=== PATIENT | male | born 1955 | race Caucasian/White ===

== ENCOUNTER 2017-01-15 05:41 | Emergency (ER) | payer BC ==
[2017-01-15] MEDS ORDERED: Fentanyl 100 MCG/2 ML VIAL ONE (05:50)
[2017-01-15] MEDS ORDERED: Ondansetron HCl/PF 4 MG/2 ML Vial ONE ×2 (05:51→07:14)
[2017-01-15] MEDS ORDERED: Morphine 10 MG/ML VIAL ONE ×2 (06:06→07:11)
[2017-01-15] MEDS ORDERED: Lidocaine 1% PF 5 ML VIAL ONE (06:24)
[2017-01-15] MEDS ORDERED: Magnesium Sulfate 2 GM/100 ML BAG ONE (07:03)
[2017-01-15] MEDS ORDERED: Lidocaine 1% (PF) 30 ML VIAL ONE (07:45)
[2017-01-15] MEDS ORDERED: CEFAZOLIN/Water 2 GM/20 ML SYRINGE ONE (08:11)
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
[2017-01-15 12:11] LABS: ALT (SGPT) 35 U/L (8-55); AST (SGOT) 31 U/L (5-34); Alkaline Phosphatase 72 U/L (40-150); Anion Gap 16 mmol/L (10-20); BUN (Urea Nitrogen) 14 mg/dL (8.4-25.7); Calc. Creatinine Clearance 0 mL/min (70-130); Calcium 8.6 mg/dL (7.8-10.44); Carbon Dioxide 22 mmol/L (23-31); Chloride 109 mmol/L (98-107); Estimated GFR-MDRD 79; Globulin 3.1 g/dL (2.4-3.5); Protein, Total 7.2 g/dL (5.8-8.1)
== END 2017-01-15 10:10 | disposition home or self-care (01) ==
LOC: ERS 05:41
DX: S62.630A Displaced fracture of distal phalanx of right index finger, initial encounter for closed fracture (principal); S62.632A Displaced fracture of distal phalanx of right middle finger, initial encounter for closed fracture; S62.634A Displaced fracture of distal phalanx of right ring finger, initial encounter for closed fracture; S61.011A Laceration without foreign body of right thumb without damage to nail, initial encounter; I10 Essential (primary) hypertension; Z79.899 Other long term (current) drug therapy; W22.8XXA Striking against or struck by other objects, initial encounter
CPT/HCPCS: 12002; 80053; 96374; 96375; 96376; J1170; J2001; J2270; J2405; J3010; J3475

== ENCOUNTER 2017-04-07 21:54 | Emergency (ER) | payer BC ==
--- NOTE | 2017-04-07 22:43 | RAD ---
TWO VIEWS OF THE CHEST 04/07/17 COMPARISON: 11/26/02 HISTORY: Fever. FINDINGS: Two views of the chest show normal sized cardiomediastinal silhouette. There is no evidence of consol idation, mass, or pleural effusion. The bones are unremarkable. IMPRESSION: No evidence of acute cardiopulmonary disease. POS: [facility]
[2017-04-07 23:20] LABS: Anion Gap 16 mmol/L (10-20); BUN (Urea Nitrogen) 18 mg/dL (8.4-25.7); Calc. Creatinine Clearance 0 mL/min (70-130); Carbon Dioxide 25 mmol/L (23-31); Chloride 103 mmol/L (98-107); Estimated GFR-MDRD 74; Potassium 3.7 mmol/L (3.5-5.1); Sodium 140 mmol/L (136-145)
[2017-04-07 23:21] LABS: ALT (SGPT) 30 U/L (8-55); AST (SGOT) 22 U/L (5-34); Alkaline Phosphatase 77 U/L (40-150); Bilirubin, Total 1.5 mg/dL (0.2-1.2); CK (CPK) 276 U/L (30-200); Calcium 8.9 mg/dL (7.8-10.44); Globulin 2.6 g/dL (2.4-3.5); Glucose 103 mg/dL (80-115); Protein, Total 6.6 g/dL (5.8-8.1)
[2017-04-07 23:28] LABS: CKMB 2.4 ng/mL (0-6.6); Troponin I Less than 0.010 ng/mL (< 0.028)
[2017-04-07 23:48] LABS: #Basophils 0.1 thou/uL (0.0-0.2); #Eosinphils 0.1 thou/uL (0.0-0.7); #Lymphocytes 0.4 thou/uL (1.20-3.40); #Monocytes 0.4 thou/uL (0.11-0.59); #Neutrophils 4.4 thou/uL (1.40-6.50); %Basophils 1.1 % (0.0-1.0); %Eosinophils 1.8 % (0.0-10.0); %Lymphocytes 7.6 % (21.0-51.0); %Monocytes 6.8 % (0.0-10.0); %Neutrophils 82.8 % (42.0-75.0); Hemoglobin 14.5 g/dL (14.0-18.0); MDiff Complete? YES; Mean Corpuscular Hemoglobin 29.6 pg (27.0-31.0); Mean Corpuscular Volume 87.2 fl (80.0-94.0); Mean Platelet Volume 13.5 fL (7.4-10.4); PLT Morphology Comment Appears Decreased; Platelet Clumps SLIGHT; Platelet Count 70 thou/uL (130-400); RBC Distribution Width 11.5 % (11.5-14.5); White Blood Cell (WBC) Count 5.3 thou/uL (4.8-10.8)
[2017-04-07 23:52] LABS: Bilirubin Small (Negative); Blood, Urine Trace (Negative); Clarity Slightly Cloudy (Clear); Glucose, Urine (Dipstick) Negative (Negative); Leukocyte Negative (Negative); Nitrite Negative (Negative); Protein, Urine (Dipstick) 30 mg/dL (Neg-Trace); Specific Gravity, Urine 1.015 (1.005-1.030); pH, Urine 6.5 (5.0-9.0)
[2017-04-08 00:09] LABS: Bacteria/HPF None Seen HPF (None Seen); Hyaline Casts/LPF NONE SEEN LPF (0-3 Hyaline); RBC/HPF 0-3 HPF (0-3); Squamous Epithelial None Seen HPF (0-3); WBC/HPF None Seen HPF (0-3)
[2017-04-08] MEDS ORDERED: Ketorolac Tromethamine 30 MG/ML VIAL ONE (00:35)
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
== END 2017-04-08 01:29 | disposition home or self-care (01) ==
LOC: SCSER 21:54
DX: B34.9 Viral infection, unspecified (principal); I10 Essential (primary) hypertension; Z79.899 Other long term (current) drug therapy
CPT/HCPCS: 71046; 71275; 80053; 81003; 81015; 82550; 82553; 83880; 84484; 85025; 85379; 93005; 96361; 96374; J1885

== ENCOUNTER 2017-04-08 18:35 | Inpatient (IN) | payer BC ==
[2017-04-08] MEDS ORDERED: Morphine 4 MG/ML Carpuject ONE ×2 (20:03→21:45)
[2017-04-08] MEDS ORDERED: Ondansetron HCl/PF 4 MG/2 ML Vial ONE (20:03)
[2017-04-08 20:32] LABS: ALT (SGPT) 31 U/L (8-55); AST (SGOT) 25 U/L (5-34); Albumin 3.9 g/dL (3.4-4.8); Alkaline Phosphatase 76 U/L (40-150); Anion Gap 16 mmol/L (10-20); BUN (Urea Nitrogen) 11 mg/dL (8.4-25.7); Bilirubin, Total 1.5 mg/dL (0.2-1.2); CRP (Inflammatory) 15.14 mg/dL (= or < 0.5); Calc. Creatinine Clearance 0 mL/min (70-130); Calcium 8.9 mg/dL (7.8-10.44); Carbon Dioxide 23 mmol/L (23-31); Chloride 102 mmol/L (98-107); Estimated GFR-MDRD Greater than 90; Globulin 2.8 g/dL (2.4-3.5); Glucose 97 mg/dL (80-115); Potassium 3.5 mmol/L (3.5-5.1); Protein, Total 6.7 g/dL (5.8-8.1); Sodium 137 mmol/L (136-145)
[2017-04-08 21:03] LABS: #Eosinphils 0.1 thou/uL (0.0-0.7); #Lymphocytes 0.6 thou/uL (1.20-3.40); #Monocytes 0.5 thou/uL (0.11-0.59); #Neutrophils 4.3 thou/uL (1.40-6.50); %Basophils 0.7 % (0.0-1.0); %Monocytes 9.5 % (0.0-10.0); %Neutrophils 78.9 % (42.0-75.0); Hemoglobin 14.4 g/dL (14.0-18.0); MDiff Complete? YES; Mean Corpuscular HGB CONC 34.5 g/dL (32.0-36.0); Mean Corpuscular Hemoglobin 29.3 pg (27.0-31.0); Mean Corpuscular Volume 84.9 fl (80.0-94.0); Mean Platelet Volume 9.8 fL (7.4-10.4); PLT Morphology Comment Appears Decreased; Platelet Clumps MARKED; Platelet Count 85 thou/uL (130-400); RBC Distribution Width 10.9 % (11.5-14.5); RBC Morphology Normal; Red Blood Cell (RBC) Count 4.91 mill/uL (4.70-6.10); White Blood Cell (WBC) Count 5.5 thou/uL (4.8-10.8)
[2017-04-08] MEDS ORDERED: CEFAZOLIN 1 GM VIAL ONE (22:04)
--- NOTE | 2017-04-08 22:15 | RAD ---
THREE VIEWS OF THE RIGHT HAND 04/08/17 COMPARISON: 01/15/17 HISTORY: Pain. FINDINGS: Three views of the right hand shows postsurgical changes of the distal phalanx of the index finger. T wo K-wires are seen within the distal phalanx. There has been significant resorption of the bone in t he distal phalanx. There is remodeling of the distal phalanx of the middle finger and there appears t o be an overlying dressing. The small fracture of the tuft of the ring finger distal phalanx appears healed. There are degenerative changes of the interphalangeal joints of the fingers consistent with o steoarthritis. There is a small radiopaque foreign body within the thumb web space. IMPRESSION: Resorption and remodeling of the distal phalanges of the index and middle fingers from prior injury. Moderate right hand osteoarthritis. POS: [facility]
[2017-04-08] MEDS ORDERED: Bacitracin Zinc 1 Packet ONE (23:18)
[2017-04-09] MEDS ORDERED: Morphine 5 MG/ML SYRINGE SLOW IVP PRN (01:17)
[2017-04-09] MEDS ORDERED: Ondansetron ODT 4 MG TAB SL PRN (01:17)
[2017-04-09] MEDS ORDERED: Sodium Chloride 0.9% 1,000 ML IV SCH (01:17)
[2017-04-09] MEDS ORDERED: Ondansetron HCl/PF 4 MG/2 ML Vial IVP PRN ×2 (01:17→06:24)
[2017-04-09] MEDS ORDERED: Acetaminophen 325 MG TAB PO PRN (01:17)
[2017-04-09 04:56] VITALS: BMI 34.2
[2017-04-09] MEDS ORDERED: Fentanyl 100 MCG/2 ML VIAL ONE (05:05)
[2017-04-09] MEDS ORDERED: Bupivacaine PF 0.5% 30 ML VIAL ONE (06:05)
[2017-04-09] MEDS ORDERED: Promethazine HCl 25 MG/ML VIAL IM PRN (06:24)
[2017-04-09] MEDS ORDERED: Promethazine HCl 25 MG/ML VIAL SLOW IVP PRN (06:24)
[2017-04-09] MEDS ORDERED: Ketorolac Tromethamine 30 MG/ML VIAL ONE (06:43)
[2017-04-09] MEDS: Sodium Chloride 0.9% 1,000 ML IV SCH (08:46)
[2017-04-09] MEDS: Vancomycin HCl 1 GM in Premix Bag 1 BAG IVPB SCH ×2 (08:46→21:50)
[2017-04-09] MEDS: HYDROcodone/Acetaminophen 10/325 mg Tablet PO PRN ×4 (08:51→21:50)
[2017-04-09] MEDS: Ketorolac Tromethamine 30 MG/ML VIAL IVP SCH ×2 (12:53→21:49)
[2017-04-09] MEDS ORDERED: Ondansetron HCl/PF 4 MG/2 ML Vial ONE (14:43)
[2017-04-09] MEDS ORDERED: Lidocaine 1% PF 5 ML VIAL ONE (14:43)
[2017-04-09] MEDS ORDERED: Propofol 200 MG/20 ML VIAL ONE (14:43)
--- NOTE | 2017-04-09 15:06 | OP ---
DATE OF PROCEDURE: 04/09/2017 PREOPERATIVE DIAGNOSIS: Infection of the right index finger. POSTOPERATIVE DIAGNOSIS: Infection of the right index finger. PROCEDURES PERFORMED: Debridement of finger, exploration and irrigation of flexor sheath. SURGEON: Dr. Spann. PROCEDURE IN DETAIL: The patient was brought to the operating room and after administration of gener al anesthetic intubation, Iodoform seal was placed on the middle finger and over the incisions on the volar wrist and the subcutaneous border of the proximal ulna. The extremities were then prepped and draped in the usual fashion. The index finger had a necrotic tip and the sutures were removed from it from a previous operation an d 2 pins were removed. The bone graft and fragments of the distal phalanx were removed by sharp diss ection. Cultures were taken. The wound was copiously irrigated and the skin and soft tissues were d ebrided back to bleeding tissue. The remnants of the nail bed were removed and the wound was loosely approximated with nylon. A dressing was applied and the patient was taken to the recovery room in s atisfactory condition. ESTIMATED BLOOD LOSS: 5 mL.
[2017-04-10] MEDS: HYDROcodone/Acetaminophen 10/325 mg Tablet PO PRN ×6 (02:16→22:07)
[2017-04-10] MEDS: Ketorolac Tromethamine 30 MG/ML VIAL IVP SCH ×3 (06:50→22:06)
[2017-04-10] MEDS: Sodium Chloride 0.9% 1,000 ML IV SCH (06:51)
[2017-04-10] MEDS: Amlodipine 10 MG TAB PO SCH (08:35)
[2017-04-10] MEDS: Vancomycin HCl 1 GM in Premix Bag 1 BAG IVPB SCH ×2 (08:36→22:07)
[2017-04-10 08:44] LABS: Vancomycin, Trough 7.4 ug/mL
[2017-04-10] MEDS ORDERED: CEFAZOLIN/Water 2 GM/20 ML SYRINGE SLOW IVP SCH (11:00)
--- NOTE | 2017-04-10 14:24 | PQF ---
CLINICAL DOCUMENTATION IMPROVEMENT CLARIFICATION FORM: ICD-10 Updated PLEASE DO AN ADDENDUM TO THE PROGRESS NOTE WITH ANY DOCUMENTATION UPDATES OR ADDITIONS AND CARRY THROUGH TO DC SUMMARY. THANK YOU. DATE: 04/10/17 ATTN: DR. GUARDADO Please exercise your independent, professional judgment in responding to the clarification form. Clinical indicators are provided on the bottom of this form for your review Please check appropriate box(s): [ ] Excisional Debridement: [ ] Excised [ ] Cut away [ ] Other: Depth / layer: (deepest layer of debridement): [ ] Skin[ ] SubQ Tissue [ ] Fascia [ ] Muscle [ ] Tendon [ ] Bone Appearance of wound: (e.g., down to fresh bleeding tissue, etc.)___ Margins: (please specify): / x x Instruments used: [ ] Scissors [ ] Scalpel [ ] Curette [ ] Soft tissue clipper [ ] Other: [ ] Non-excisional Debridement: (Removal by flushing, brushing, chemical, or washing) Depth / layer: (deepest layer of debridement): [ ] Skin[ ] Subcutaneous [ ] Fascia [ ] Muscle [ ] Tendon [ ] Bone [ ] Incision and Drainage only (No Debridement): Depth:[ ] Skin [ ] Subcutaneous [ ] Fascia [ ] Muscle [ ] Tendon [ ] Bone [ ] Escharectomy [ ] Other procedure diagnosis [ ] Unable to determine For continuity of documentation, please document condition throughout progress notes and discharge summary. Thank You. CLINICAL INDICATORS - SIGNS / SYMPTOMS / LABS OP NOTE: "THE BONE GRAFT AND FRAGMENTS OF THE DISTAL PHALANX WERE REMOVED BY SHARP DISSECTION. CULTURES WERE TAKEN. THE WOUND WAS COPIOUSLY IRRIGATED AND THE SKIN AND SOFT TISSUES WERE DEBRIDED BACK TO BLEEDING TISSUE." RISKS: INFECTION OF FINGER TREATMENT: SURGICAL INTERVENTION (This form is maintained as a part of the permanent medical record) 2014 [employer]. All Rights Reserved [email or web address] Office: [phone] [facility]
[2017-04-10] MEDS: Morphine 5 MG/ML SYRINGE SLOW IVP PRN (22:29)
[2017-04-11] MEDS: HYDROcodone/Acetaminophen 10/325 mg Tablet PO PRN ×6 (02:15→22:33)
[2017-04-11] MEDS: Ketorolac Tromethamine 30 MG/ML VIAL IVP SCH ×3 (06:08→21:09)
[2017-04-11] MEDS: Morphine 5 MG/ML SYRINGE SLOW IVP PRN ×2 (06:09→21:58)
[2017-04-11] MEDS: Vancomycin HCl 1 GM in Premix Bag 1 BAG IVPB SCH (08:22)
[2017-04-11] MEDS: Amlodipine 10 MG TAB PO SCH (08:22)
[2017-04-11] MEDS: Sodium Chloride 0.9% 1,000 ML IV SCH (08:23)
[2017-04-11] MEDS ORDERED: CEFAZOLIN/Water 2 GM/20 ML SYRINGE SLOW IVP SCH (12:15)
--- NOTE | 2017-04-11 13:49 | RAD ---
RADIOGRAPH RIGHT HAND THREE VIEWS: DATE: 04/11/2017 HISTORY: A 62-year-old male, status post right hand surgery. Followup. COMPARISON: 04/08/2017 FINDINGS: There is a greater degree of diffuse soft tissue swelling of the second digit now, compared to the pr evious study. The two metallic pins, with proximal portions embedded within the base of the second d istal phalanx, have been removed. The multiple comminuted and displaced fracture fragments in place of the entire rest of the second distal phalanx are currently absent. Again demonstrated are the flexion and moderate degenerative change of the third DIP joint; the defor mity of the third distal phalanx, and the small osseous defect at the ulnar side of the third distal phalanx. There are moderate to severe degenerative changes at the fifth DIP joint. IMPRESSION: 1. Interval removal of the two short metallic pins, and interval removal or resorption of the commin uted fracture fragments, involving the second distal phalanx. Currently, only the base of the second distal phalanx remains. 2. Interval worsening of diffuse soft tissue swelling of the second digit. 3. The deformity and the small focal defect, of the third distal phalanx are unchanged compared to t he prior study. 4. Osteoarthrosis, especially of the fifth distal interphalangeal joint and the third distal interph alangeal joint. POS: [facility]
[2017-04-11 15:27] LABS: #Eosinphils 0.2 thou/uL (0.0-0.7); #Lymphocytes 0.6 thou/uL (1.20-3.40); #Monocytes 0.4 thou/uL (0.11-0.59); %Basophils 0.3 % (0.0-1.0); %Eosinophils 3.4 % (0.0-10.0); %Lymphocytes 11.7 % (21.0-51.0); %Monocytes 8.5 % (0.0-10.0); Hemoglobin 14.6 g/dL (14.0-18.0); Mean Corpuscular HGB CONC 34.6 g/dL (32.0-36.0); Mean Corpuscular Volume 89.5 fl (80.0-94.0); Mean Platelet Volume 9.5 fL (7.4-10.4); PLT Morphology Comment PLT clumps seen-ADEQ; RBC Distribution Width 11.6 % (11.5-14.5); RBC Morphology Normal; Red Blood Cell (RBC) Count 4.73 mill/uL (4.70-6.10); White Blood Cell (WBC) Count 5.2 thou/uL (4.8-10.8)
[2017-04-11 15:35] LABS: Anion Gap 13 mmol/L (10-20); BUN (Urea Nitrogen) 7 mg/dL (8.4-25.7); Calc. Creatinine Clearance 128 mL/min (70-130); Calcium 8.5 mg/dL (7.8-10.44); Carbon Dioxide 28 mmol/L (23-31); Chloride 104 mmol/L (98-107); Estimated GFR-MDRD 87; Glucose 136 mg/dL (80-115); Potassium 3.3 mmol/L (3.5-5.1); Sodium 142 mmol/L (136-145)
[2017-04-11] MEDS: CEFAZOLIN/Water 2 GM/20 ML SYRINGE SLOW IVP SCH ×2 (18:29→23:53)
[2017-04-12] MEDS: Morphine 5 MG/ML SYRINGE SLOW IVP PRN ×2 (02:45→04:52)
[2017-04-12] MEDS: Sodium Chloride 0.9% 1,000 ML IV SCH (05:00)
[2017-04-12] MEDS: Ketorolac Tromethamine 30 MG/ML VIAL IVP SCH ×3 (05:00→21:46)
[2017-04-12] MEDS: CEFAZOLIN/Water 2 GM/20 ML SYRINGE SLOW IVP SCH ×4 (05:00→23:49)
[2017-04-12] MEDS: Amlodipine 10 MG TAB PO SCH ×2 (08:27→10:00)
[2017-04-12] MEDS ORDERED: Fentanyl 100 MCG/2 ML VIAL ONE (09:19)
[2017-04-12] MEDS ORDERED: Triple Antibiotic Oint 1 GM Packet TOP PRN (09:59)
[2017-04-12] MEDS: HYDROcodone/Acetaminophen 10/325 mg Tablet PO PRN ×4 (09:59→21:50)
[2017-04-12] MEDS ORDERED: Triple Antibiotic Oint 1 GM Packet TOP SCH (10:00)
[2017-04-12] MEDS: Senokot S 8.6-50 MG TAB PO SCH (20:51)
[2017-04-13] MEDS: Morphine 5 MG/ML SYRINGE SLOW IVP PRN (03:05)
[2017-04-13] MEDS: Ketorolac Tromethamine 30 MG/ML VIAL IVP SCH ×3 (05:47→21:03)
[2017-04-13] MEDS: CEFAZOLIN/Water 2 GM/20 ML SYRINGE SLOW IVP SCH ×4 (05:48→23:34)
[2017-04-13] MEDS: Senokot S 8.6-50 MG TAB PO SCH ×2 (08:53→20:57)
[2017-04-13] MEDS: Saccharomyces boulardii 250 MG CAP PO SCH (08:53)
[2017-04-13] MEDS: Amlodipine 10 MG TAB PO SCH (08:53)
[2017-04-13] MEDS: traMADol HCl 50 MG TAB PO PRN ×2 (16:53→23:34)
[2017-04-13] MEDS: Sodium Chloride 0.9% 1,000 ML IV SCH (17:51)
[2017-04-14] MEDS: traMADol HCl 50 MG TAB PO PRN (04:35)
[2017-04-14] MEDS: CEFAZOLIN/Water 2 GM/20 ML SYRINGE SLOW IVP SCH (05:24)
[2017-04-14] MEDS: Ketorolac Tromethamine 30 MG/ML VIAL IVP SCH (05:24)
[2017-04-14] MEDS: Sodium Chloride 0.9% 1,000 ML IV SCH (07:29)
[2017-04-14 08:09] VITALS: TEMP 98
--- NOTE | 2017-04-14 08:41 | DIS ---
DATE OF DISCHARGE: 04/14/2017 DISCHARGE DIAGNOSIS: Infection of the right index finger. DISCHARGE MEDICATIONS: Keflex 500 mg p.o. q.6h. for 14 days, Tylenol #3 1-2 p.o. q.4h. p.r.n. for pa in as needed. DISCHARGE FOLLOWUP: Follow up will be in my office in 3 days. DISCHARGE INSTRUCTIONS: Daily dressing changes, wash and clean finger with the tepid tap water and r edress. HOSPITAL COURSE: The patient was admitted through the emergency room on 04/09/2017 and was kindly pu t in on Dr. Vargas services as I was having problems with my phone at the time and did not get the ca ll. I saw the patient 3 hours after he got to the floor on 04/09/2017 and saw that he had a purulent finger infection of the right index finger. He was taken to the operating room as soon as possible emergently and I&D and debridement of his finger were done and removal of pins and flexor tendon hernandez th irrigation. Cultures were taken, at that time were growing Staph aureus sensitive to cephalospori ns. The patient was initially treated with vancomycin until the cultures came back and then was swit ched to Ancef 1 gram q.6h. His pain in his finger slowly subsided as did the swelling. I changed his dressing myself daily up until the day of discharge. His finger continued to have some erythema and superficial skin sloughing and a little bit of drainage, but no longer had pain and he was able to m ove it. On the day of discharge, the patient was afebrile, tolerating a diet and ambulatory. His jensen tures in his wrist and proximal forearm were removed. CONDITION AT TIME OF DISCHARGE: Good. Prognosis for his finger is guarded.
[2017-04-14] MEDS: Amlodipine 10 MG TAB PO SCH (10:20)
[2017-04-14] MEDS: Saccharomyces boulardii 250 MG CAP PO SCH (10:20)
[2017-04-14 10:21] VITALS: BP 116/80
[2017-04-14] MEDS: Senokot S 8.6-50 MG TAB PO SCH (10:21)
== END 2017-04-14 11:15 | disposition home or self-care (01) | DRG 858 ==
LOC: SCSER 18:35 → SURG A 23:30
PROVIDERS: ADMIT Orthopaedic Surgery; ATTEND Orthopaedic Surgery
PROC: 0PPT04Z Removal of Internal Fixation Device from Right Finger Phalanx, Open Approach (ICD-10-PCS; principal; 2017-04-09)
PROC: 0PBT0ZZ Excision of Right Finger Phalanx, Open Approach (ICD-10-PCS; 2017-04-09)
DX: T81.4XXA Infection following a procedure, initial encounter (principal); I10 Essential (primary) hypertension; L08.9 Local infection of the skin and subcutaneous tissue, unspecified; B95.61 Methicillin susceptible Staphylococcus aureus infection as the cause of diseases classified elsewhere
CPT/HCPCS: 36415; 80048; 80053; 80202; 83605; 85025; 85652; 86140; 87070; 87077; 87147; 87186; 87205; 93005; 93010; 94760; 96361; 96365; 96366; 96375; 96376; J2270; J0690; J1885; J2001; J2405; J2704; J3010; J3370; S0020

== ENCOUNTER 2018-05-23 21:36 | Emergency (ER) | payer BC ==
[2018-05-23] MEDS ORDERED: Ondansetron PF 4 MG/2 ML Vial ONE (22:12)
[2018-05-23] MEDS ORDERED: Morphine 4 MG/ML VIAL ONE (22:12)
[2018-05-23 22:24] LABS: #Eosinphils 0.2 thou/uL (0.0-0.7); #Lymphocytes 0.8 thou/uL (1.20-3.40); #Monocytes 0.4 thou/uL (0.11-0.59); #Neutrophils 6.7 thou/uL (1.40-6.50); %Basophils 0.5 % (0.0-1.0); %Eosinophils 1.9 % (0.0-10.0); %Lymphocytes 9.6 % (21.0-51.0); %Monocytes 4.5 % (0.0-10.0); %Neutrophils 83.6 % (42.0-75.0); Hemoglobin 17.2 g/dL (14.0-18.0); Mean Corpuscular HGB CONC 35.9 g/dL (32.0-36.0); Mean Corpuscular Hemoglobin 30.7 pg (27.0-31.0); Mean Corpuscular Volume 85.5 fL (78.0-98.0); Platelet Count 117 thou/uL (130-400); RBC Distribution Width 11.6 % (11.5-14.5); Red Blood Cell (RBC) Count 5.58 mill/uL (4.70-6.10)
[2018-05-23 22:27] LABS: Platelet Morphology Comment PLT CLUMPER
[2018-05-23 22:31] LABS: ALT (SGPT) 42 U/L (8-55); AST (SGOT) 23 U/L (5-34); Albumin 4.7 g/dL (3.4-4.8); Alkaline Phosphatase 83 U/L (40-150); Anion Gap 16 mmol/L (10-20); BUN (Urea Nitrogen) 14 mg/dL (8.4-25.7); Bilirubin, Total 1.6 mg/dL (0.2-1.2); Calc. Creatinine Clearance 0 mL/min (70-130); Calcium 9.5 mg/dL (7.8-10.44); Carbon Dioxide 23 mmol/L (23-31); Chloride 104 mmol/L (98-107); Estimated GFR-MDRD Greater than 90; Globulin 2.7 g/dL (2.4-3.5); Glucose 140 mg/dL (80-115); Lipase 27 U/L (8-78); Protein, Total 7.4 g/dL (5.8-8.1); Sodium 140 mmol/L (136-145)
[2018-05-23] MEDS ORDERED: Potassium Chloride 20 MEQ TAB ONE (22:50)
== END 2018-05-23 23:14 | disposition home or self-care (01) ==
LOC: SCSER 21:36
DX: R10.13 Epigastric pain (principal); E87.6 Hypokalemia; I10 Essential (primary) hypertension
CPT/HCPCS: 80053; 83690; 85025; 93005; 96361; 96374; 96375; J2270; J2405

== ENCOUNTER 2018-05-24 14:21 | Inpatient (IN) | payer BC ==
[2018-05-24] MEDS ORDERED: Ondansetron PF 4 MG/2 ML Vial ONE (14:47)
[2018-05-24 15:03] LABS: White Blood Cell (WBC) Count 9.2 thou/uL (4.8-10.8)
[2018-05-24 15:04] LABS: Hemoglobin 16.5 g/dL (14.0-18.0)
[2018-05-24 15:07] LABS: ALT (SGPT) 35 U/L (8-55); AST (SGOT) 18 U/L (5-34); Albumin 4.4 g/dL (3.4-4.8); Alkaline Phosphatase 80 U/L (40-150); Anion Gap 13 mmol/L (10-20); BUN (Urea Nitrogen) 14 mg/dL (8.4-25.7); Bilirubin, Total 1.6 mg/dL (0.2-1.2); Calc. Creatinine Clearance 0 mL/min (70-130); Calcium 9.3 mg/dL (7.8-10.44); Carbon Dioxide 27 mmol/L (23-31); Chloride 105 mmol/L (98-107); Estimated GFR-MDRD 75; Globulin 2.5 g/dL (2.4-3.5); Glucose 111 mg/dL (80-115); Lipase 44 U/L (8-78); Potassium 3.3 mmol/L (3.5-5.1); Protein, Total 6.9 g/dL (5.8-8.1); Sodium 142 mmol/L (136-145)
[2018-05-24 15:09] LABS: #Basophils 0.1 thou/uL (0.0-0.2); #Eosinphils 0.1 thou/uL (0.0-0.7); #Lymphocytes 0.8 thou/uL (1.20-3.40); #Monocytes 0.4 thou/uL (0.11-0.59); #Neutrophils 7.8 thou/uL (1.40-6.50); %Basophils 0.6 % (0.0-1.0); %Eosinophils 1.2 % (0.0-10.0); %Lymphocytes 8.3 % (21.0-51.0); %Monocytes 4.8 % (0.0-10.0); %Neutrophils 85.1 % (42.0-75.0); MDiff Complete? YES; Mean Corpuscular HGB CONC 33.8 g/dL (32.0-36.0); Mean Corpuscular Volume 88.9 fL (78.0-98.0); Mean Platelet Volume 8.6 fL (7.4-10.4); Platelet Clumps SLIGHT; Platelet Count 100 thou/uL (130-400); Platelet Morphology Comment Appears Adequate; RBC Distribution Width 12.5 % (11.5-14.5); RBC Morphology Normal
[2018-05-24] MEDS ORDERED: Piperacillin/Tazobactam 3.375 GM VIAL ONE (15:40)
[2018-05-24] MEDS ORDERED: Sodium Chloride 0.9% 100 ML ONE (15:40)
--- NOTE | 2018-05-24 16:04 | CT ---
CT ABDOMEN AND PELVIS WITHOUT CONTRAST: Date: 05/24/18 HISTORY: Abdominal pain, diarrhea. FINDINGS: Absence of oral and IV contrast reduces the sensitivity of exam, particularly for evaluation of solid organs and bowel. There are dependent changes in the lung bases. No calcified gallstones are seen. No free air or free fluid is seen noted in the abdomen or pelvis. Splenomegaly (about 16 cm in AP dimension) is stable si nce exam of 11/26/02. There is a punctate calculus in the left kidney. No calculi seen in the right kidney, either ureter, or the urinary bladder. No hydroureteronephrosis seen on either side. There is mild prostatic enlarge ment. The appendix is fluid-filled and dilated with periappendiceal inflammatory changes consistent with ap pendicitis. There is colonic diverticulosis without diverticulitis. No aneurysmal dilatation of the abdominal aor ta is seen. There are mild degenerative changes in the spine. Bilateral fat-containing inguinal herni a seen, left larger than right. IMPRESSION: 1. Acute appendicitis. 2. Nonobstructing punctate left renal calculus. 3. Colonic diverticulosis. 4. Stable splenomegaly since 2002. Discussed over the telephone with ER physician, Dr. Jose Daniels, at 1526 hours. CODE CR.
[2018-05-24] MEDS ORDERED: Morphine 4 MG/ML VIAL ONE ×2 (16:25→18:30)
[2018-05-24] MEDS ORDERED: Famotidine/PF 20 mg/2ml Vial ONE ×2 (17:49→19:50)
[2018-05-24] MEDS ORDERED: Fentanyl 100 MCG/2 ML VIAL ONE ×2 (17:49→19:50)
[2018-05-24] MEDS ORDERED: Bupivacaine/Epinephrine 0.25% 30 ML VIAL ONE (18:42)
[2018-05-24] MEDS ORDERED: Ketorolac Tromethamine 30 MG/ML VIAL ONE (19:56)
[2018-05-24] MEDS ORDERED: Piperacillin/Tazobactam 3.375 GM in Sodium Chloride 0.9% 100 ML IVPB SCH (20:00)
[2018-05-24] MEDS ORDERED: Ketorolac Tromethamine 30 MG/ML VIAL IVP SCH (20:00)
[2018-05-24] MEDS ORDERED: SUGAMMADEX SODIUM 200 MG/2 ML VIAL ONE (21:17)
[2018-05-24] MEDS ORDERED: Promethazine HCl 25 MG/ML VIAL SLOW IVP PRN (21:21)
[2018-05-24] MEDS ORDERED: Ondansetron HCl/PF 4 MG/2 ML Vial IVP PRN (21:21)
[2018-05-24] MEDS ORDERED: Promethazine HCl 25 MG/ML VIAL IM PRN ×2 (21:21→22:10)
[2018-05-24] MEDS ORDERED: Meperidine HCl/PF 25 MG/ML VIAL SLOW IVP PRN (21:21)
[2018-05-24] MEDS ORDERED: Ondansetron PF 4 MG/2 ML Vial IVP PRN (22:10)
[2018-05-24] MEDS ORDERED: Morphine 4 MG/ML VIAL SLOW IVP PRN ×2 (22:10)
[2018-05-24] MEDS ORDERED: hydrALAZINE 20 MG/ML VIAL SLOW IVP PRN (22:10)
[2018-05-24] MEDS ORDERED: Dextrose 50% Abboject 50 ML SYRINGE SLOW IVP PRN (22:10)
[2018-05-24] MEDS ORDERED: Dextrose 5% in Water 1,000 ML IV PRN (22:10)
[2018-05-24] MEDS ORDERED: HYDROcodone/Acetaminophen 7.5/325 mg Tablet PO PRN ×2 (22:10)
[2018-05-24 23:36] VITALS: BMI 34.7
[2018-05-24] MEDS: Lactated Ringer's 1,000 ML IV SCH (23:43)
[2018-05-24] MEDS: Ketorolac Tromethamine 30 MG/ML VIAL IVP SCH (23:43)
--- NOTE | 2018-05-25 01:56 | HP ---
CHIEF COMPLAINT: Right lower quadrant abdominal pain. HISTORY OF PRESENT ILLNESS: The patient is a 63-year-old moderately obese white male. He had onset of lower abdominal pain yesterday. He initially thought this was because of something he ate or herbicide exposure. He presented to the emergency room where laboratory studies were obtained which reveal a normal white blood cell count. He was found to be a little hypokalemic, given some potassium pills and asked to follow up as needed. His pain became worse today and he re-presented to the emergency room. CT scan at this time reveals evidence of acute appendicitis. Interestingly, his white blood cell count is still normal. He denies vomiting. His pain is focal in the right lower quadrant. He has developed a fever since he presented to the hospital this evening. PAST MEDICAL HISTORY: Significant for hypertension. PAST SURGICAL HISTORY: Umbilical hernia, inguinal hernia, hemorrhoid surgery. MEDICATIONS: 1. Irbesartan. 2. Amlodipine. 3. Hydrochlorothiazide. PRIMARY CARE PHYSICIAN: Bryan Martínez MD. ALLERGIES: NO KNOWN DRUG ALLERGIES. PERSONAL AND SOCIAL HISTORY: He is with children. His and two of his kids are present. He does not smoke and drinks alcohol occasionally. REVIEW OF SYSTEMS: Otherwise unremarkable. FAMILY HISTORY: Noncontributory. PHYSICAL EXAMINATION: VITAL SIGNS: He is about 5 feet 9 inches tall, weighs about 240 pounds. He is febrile to a temperature of 104 in the emergency room. LUNGS: Clear to auscultation. CARDIAC: Regular rate and rhythm. ABDOMEN: Obese. Bowel sounds are hypoactive. It is soft but focally tender in the right lower quadrant with obvious guarding. EXTREMITIES: Unremarkable. ASSESSMENT: The patient with acute appendicitis with fever. PLAN: Laparoscopic appendectomy. I have discussed the operation in detail with the patient as well as potential risks. He understands and agrees to proceed with the surgery at this time. Job ID: [id number]
[2018-05-25] MEDS: Piperacillin/Tazobactam 3.375 GM in Sodium Chloride 0.9% 100 ML IVPB SCH ×2 (02:10→08:50)
[2018-05-25] MEDS: Ketorolac Tromethamine 30 MG/ML VIAL IVP SCH ×2 (05:35→11:09)
[2018-05-25 05:47] LABS: Anion Gap 11 mmol/L (10-20); BUN (Urea Nitrogen) 16 mg/dL (8.4-25.7); Calc. Creatinine Clearance 88 mL/min (70-130); Calcium 7.6 mg/dL (7.8-10.44); Carbon Dioxide 25 mmol/L (23-31); Chloride 107 mmol/L (98-107); Estimated GFR-MDRD 57; Glucose 120 mg/dL (80-115); Potassium 3.2 mmol/L (3.5-5.1); Sodium 140 mmol/L (136-145)
[2018-05-25 06:34] LABS: #Lymphocytes 0.6 thou/uL (1.20-3.40); #Monocytes 0.6 thou/uL (0.11-0.59); #Neutrophils 7.9 thou/uL (1.40-6.50); %Basophils 0.2 % (0.0-1.0); %Eosinophils 0.4 % (0.0-10.0); %Lymphocytes 6.9 % (21.0-51.0); %Monocytes 6.5 % (0.0-10.0); Hemoglobin 14.8 g/dL (14.0-18.0); Mean Corpuscular HGB CONC 34.8 g/dL (32.0-36.0); Mean Corpuscular Hemoglobin 31.4 pg (27.0-31.0); Mean Corpuscular Volume 90.3 fL (78.0-98.0); Mean Platelet Volume 10.3 fL (7.4-10.4); Platelet Count 77 thou/uL (130-400); RBC Distribution Width 12.5 % (11.5-14.5); Red Blood Cell (RBC) Count 4.71 mill/uL (4.70-6.10); White Blood Cell (WBC) Count 9.2 thou/uL (4.8-10.8)
[2018-05-25 08:15] VITALS: BP 120/73; TEMP 97.3
[2018-05-25] MEDS: Lactated Ringer's 1,000 ML IV SCH (08:49)
[2018-05-25] MEDS ORDERED: Enoxaparin Sodium 40 MG/0.4 ML SYRINGE SC SCH (09:00)
[2018-05-25] MEDS ORDERED: Amlodipine 10 MG TAB PO SCH (09:00)
[2018-05-25] MEDS ORDERED: Non-Formulary Item 1 EACH (Irbesartan [Irbesartan] 300 MG) PO SCH (09:00)
[2018-05-25] MEDS ORDERED: Hydrochlorothiazide 25 MG TAB PO SCH (09:00)
[2018-05-25] MEDS ORDERED: Famotidine/PF 20 mg/2ml Vial SLOW IVP SCH (09:00)
[2018-05-25] MEDS ORDERED: Famotidine 20 MG TAB PO SCH (09:00)
--- NOTE | 2018-05-25 17:07 | OP ---
DATE OF PROCEDURE: 05/24/2018 PREOPERATIVE DIAGNOSIS: Acute appendicitis. POSTOPERATIVE DIAGNOSIS: Acute appendicitis, gangrenous without obvious perforation. OPERATION PERFORMED: Laparoscopic appendectomy with extensive irrigation. ANESTHESIA: General endotracheal. INDICATIONS: The patient is a 63-year-old white male. He presents with findings consistent with acute appendicitis and this was confirmed on CT scan. He is taken to the operative room at this time for laparoscopic appendectomy. DESCRIPTION OF OPERATION: Informed consent was obtained. The patient was taken to the operating room, where general endotracheal anesthesia was obtained with the patient in supine position. Abdomen was prepped with ChloraPrep and draped in a sterile fashion. Local anesthetic was infiltrated. A 5 mm periumbilical incision was created through which a Veress needle was passed into the peritoneal cavity, and pneumoperitoneum was established using carbon dioxide up to pressure of 15 mmHg. A 5-mm trocar port was passed through the same incision and laparoscopic camera was passed through this port. Under direct vision, two additional ports were placed including a 5 mm left lower quadrant port and a 12 mm suprapubic port. There were some adhesions to the anterior abdominal wall in the lower midline and these were carefully taken down with electrocautery. There were also omental adhesions to the mesh at the umbilicus and this was taken down using electrocautery. Attention was turned to the right lower quadrant. The patient had obvious fibrinopurulent material visible. I began to unwrap loops of small bowel off the underlying gangrenous appendix. I mobilized surrounding adhesions. I was able to lift up the appendix and grasped it by the mesoappendix. The mesoappendix was taken down using electrocautery. The base of the appendix was skeletonized. There was found to be a normal segment of appendix at the base. It was divided at this level between PDS Endoloop ties. The appendiceal stump was cauterized. The appendix was placed in a specimen retrieval sac and removed through the suprapubic port. Fascia was closed with 0 Vicryl suture using a GraNee needle. The right lower quadrant and pelvis were thoroughly irrigated and all irrigant was aspirated. Cultures were obtained of some surrounding fluid before it was irrigated. There was no true abscess cavity and no collection of purulent material that was visualized. All ports and instruments were removed under direct vision. Pneumoperitoneum was carefully evacuated. 0.25% Marcaine with epinephrine was infiltrated at each port site. Skin edges were approximated with 4-0 Monocryl subcuticular suture and Dermabond was placed externally. There were no complications. The patient tolerated the procedure well and was taken to recovery room in stable condition. Job ID: [id number]
== END 2018-05-25 13:55 | disposition home or self-care (01) | DRG 343 ==
LOC: SCSER 14:21 → SDC/OP 16:40 → SURG A 22:19 → OBSVTOIN 22:19
PROVIDERS: ADMIT Surgery; ATTEND Surgery
PROC: 0DTJ4ZZ Resection of Appendix, Percutaneous Endoscopic Approach (ICD-10-PCS; principal; 2018-05-24)
DX: K35.891 Other acute appendicitis without perforation, with gangrene (principal); I10 Essential (primary) hypertension; Z98.890 Other specified postprocedural states
CPT/HCPCS: 36415; 74176; 80048; 80053; 83605; 83690; 85025; 87070; 87077; 87186; 87205; 90471; 90686; 93005; 96361; 96374; 96375; G0008; J0131; J1650; J1885; J2270; J2405; J2543; J3010; J7050; S0028

== ENCOUNTER 2018-05-27 05:04 | Observation (INO) | payer BC ==
[2018-05-27] MEDS ORDERED: Ondansetron PF 4 MG/2 ML Vial ONE ×2 (06:03→06:05)
[2018-05-27] MEDS ORDERED: Ketorolac Tromethamine 30 MG/ML VIAL ONE (06:03)
[2018-05-27] MEDS ORDERED: Fentanyl 100 MCG/2 ML VIAL ONE (06:03)
[2018-05-27 06:18] LABS: #Eosinphils 0.3 thou/uL (0.0-0.7); #Lymphocytes 0.4 thou/uL (1.20-3.40); #Monocytes 0.4 thou/uL (0.11-0.59); #Neutrophils 4.9 thou/uL (1.40-6.50); %Basophils 0.2 % (0.0-1.0); %Eosinophils 4.4 % (0.0-10.0); %Lymphocytes 6.3 % (21.0-51.0); Hemoglobin 13.9 g/dL (14.0-18.0); Mean Corpuscular HGB CONC 34.6 g/dL (32.0-36.0); Mean Corpuscular Hemoglobin 30.9 pg (27.0-31.0); Mean Corpuscular Volume 89.2 fL (78.0-98.0); Mean Platelet Volume 9.3 fL (7.4-10.4); Platelet Count 63 thou/uL (130-400); RBC Distribution Width 11.9 % (11.5-14.5); Red Blood Cell (RBC) Count 4.51 mill/uL (4.70-6.10); White Blood Cell (WBC) Count 5.9 thou/uL (4.8-10.8)
[2018-05-27 06:35] LABS: ALT (SGPT) 18 U/L (8-55); AST (SGOT) 13 U/L (5-34); Albumin 3.6 g/dL (3.4-4.8); Alkaline Phosphatase 62 U/L (40-150); Anion Gap 17 mmol/L (10-20); BUN (Urea Nitrogen) 12 mg/dL (8.4-25.7); Bilirubin, Total 1.8 mg/dL (0.2-1.2); Calc. Creatinine Clearance 0 mL/min (70-130); Calcium 8.7 mg/dL (7.8-10.44); Carbon Dioxide 24 mmol/L (23-31); Chloride 100 mmol/L (98-107); Estimated GFR-MDRD 87; Globulin 2.8 g/dL (2.4-3.5); Glucose 106 mg/dL (80-115); Magnesium 1.8 mg/dL (1.6-2.6); Protein, Total 6.4 g/dL (5.8-8.1); Sodium 138 mmol/L (136-145)
[2018-05-27 06:36] LABS: Potassium 2.6 mmol/L (3.5-5.1)
[2018-05-27] MEDS ORDERED: Piperacillin/Tazobactam 4.5 GM VIAL ONE (06:57)
[2018-05-27 08:01] LABS: Bilirubin Negative (Negative); Blood, Urine Negative (Negative); Clarity CLEAR (Clear); Glucose, Urine (Dipstick) Negative (Negative); Leukocyte Negative (Negative); Nitrite Negative (Negative); Protein, Urine (Dipstick) 30 mg/dL (Neg-Trace); Urobilinogen 0.2 mg/dL (0.2-1.0); pH, Urine 6.5 (5.0-9.0)
[2018-05-27 08:04] LABS: Bacteria/HPF None Seen HPF (None Seen); Hyaline Casts/LPF 0-3 HYALINE CAST LPF (0-3 Hyaline); Squamous Epithelial 0-3 HPF (0-3); WBC/HPF 0-3 HPF (0-3)
[2018-05-27 08:10] LABS: Specific Gravity, Urine 1.046 (1.002-1.036)
[2018-05-27] MEDS ORDERED: Ondansetron PF 4 MG/2 ML Vial IVP PRN (09:08)
[2018-05-27] MEDS ORDERED: Morphine 4 MG/ML VIAL SLOW IVP PRN (09:09)
[2018-05-27] MEDS ORDERED: Sodium Chloride 0.45% 1,000 ML IV SCH (09:15)
[2018-05-27] MEDS ORDERED: HYDROcodone/Acetaminophen 7.5/325 mg Tablet PO PRN ×2 (09:39)
[2018-05-27] MEDS ORDERED: Fentanyl 100 MCG/2 ML VIAL SLOW IVP PRN ×2 (09:39→10:54)
[2018-05-27] MEDS ORDERED: Potassium Chloride 40 MEQ in Sodium Chloride 0.9% 250 ML 250 ML IVPB SCH (09:45)
--- NOTE | 2018-05-27 09:58 | RAD ---
PORTABLE CHEST: DATE: 05/27/2018. PROVIDED CLINICAL HISTORY: Postop fever. FINDINGS: Cardiac silhouette is unchanged in appearance with respect to 04/07/2017. Bibasilar subsegmental atele ctatic changes are noted, right greater than left. No pleural fluid or pneumothorax apparent. IMPRESSION: Bibasilar subsegmental atelectatic change. POS: [facility]
[2018-05-27] MEDS ORDERED: traMADol HCl 50 MG TAB PO PRN ×2 (10:14)
[2018-05-27] MEDS: D5 1/2 NS w/20 mEq KCL 1,000 ML IV SCH ×2 (10:14→20:34)
--- NOTE | 2018-05-27 10:36 | HP ---
CHIEF COMPLAINT: Bloating, fever. HISTORY OF PRESENT ILLNESS: This is a 63-year-old male who is status post laparoscopic appendectomy by Dr. Block on 05/25/2018. He had a gangrenous appendicitis at that time without obvious perforation. Postop, the called me yesterday with some fevers over 101. She was reassured this is likely normal, but for persistent fevers over 101, he should present back to the emergency room for further workup, which he did. This morning, not feeling well, more bloating associated with nausea, anorexia and fever. CT scan shows nonspecific findings mostly postop type changes. His labs were all normal. However, he did not feel well, admitted to the hospital for observation. This morning, he feels improved. He has no nausea. No fevers overnight here. PAST MEDICAL HISTORY: Hypertension. PAST SURGICAL HISTORY: Appendectomy, umbilical hernia, inguinal hernia, hemorrhoid. MEDICATIONS: 1. Amlodipine. 2. Irbesartan. 3. Hydrochlorothiazide. ALLERGIES: NO KNOWN DRUG ALLERGIES. SOCIAL HISTORY: . No smoking, alcohol, or other drugs. REVIEW OF SYSTEMS: Ten systems review of systems are otherwise negative unless described above. PHYSICAL EXAMINATION: VITAL SIGNS: Blood pressure is 136/78, pulse 73, respirations 16, and temperature 98.0. HEENT: Sclerae anicteric. Oropharynx clear. NECK: No lymphadenopathy. CHEST: Clear. HEART: Regular rate and rhythm. ABDOMEN: Soft, minimally tender diffusely, mostly around his incisions. No guarding or rebound. No obvious wound infection. LABORATORY DATA: White blood cell count is 9, hemoglobin 13, no bands. Sodium 138, potassium 2.6, creatinine normal. CT scan shows nonspecific findings of small amount of fluid, small amount of air, some stranding changes, but no obvious abscess. ASSESSMENT: Postop laparoscopic appendectomy with persistent fevers. Overall, not feeling well. PLAN: Admit for observation, broad spectrum antibiotics. We will allow clear liquids. I suspect he will be ready for discharge tomorrow. We will replete potassium chloride. Job ID: [id number]
[2018-05-27] MEDS: Piperacillin/Tazobactam 3.375 GM in Sodium Chloride 0.9% 100 ML IVPB SCH ×3 (11:59→23:56)
[2018-05-27] MEDS: Fentanyl 100 MCG/2 ML VIAL SLOW IVP PRN ×2 (12:01→16:56)
--- NOTE | 2018-05-27 13:35 | CT ---
PRELIMINARY REPORT/[facility]/EMERGENTY AFTER-HOURS PROCEDURE CT Abdomen and Pelvis With Contrast EXAM DATE/TIME: 05/27/2018 6:03 AM CLINICAL HISTORY: 63 years old, male; Signs and symptoms; Fever; Prior surgery; Patient HX: Er 7; M63 reports to ed C/O fever tmax 100.2 after appendectomy. PT has had a decreased appetite, no bm, and pain with breathing , nausea, dysuria and blood after catheter from SX. TECHNIQUE: Imaging protocol: Axial computed tomography images of the abdomen and pelvis with intravenous contras t. Coronal reformatted images were created and reviewed. COMPARISON: No relevant prior studies available. FINDINGS: Lower thorax: Bibasilar subsegmental atelectasis. ABDOMEN: Liver: No liver masses. Gallbladder and bile ducts: Normal appearance of the gallbladder. No ductal dilation. Pancreas: No pancreatic mass or ductal dilation. Spleen: No splenic masses. Adrenals: No adrenal nodules. Kidneys and ureters: Symmetric perfusion of the kidneys. No enhancing mass or hydronephrosis. Stone m easuring 3 mm in the inferior pole of the left kidney. Stomach and bowel: Sigmoid colon diverticulosis. Appendix: Surgical changes of recent appendectomy with right lower quadrant fat stranding and trace f luid. PELVIS: Bladder: Unremarkable as visualized. Reproductive: Unremarkable as visualized. ABDOMEN and PELVIS: Intraperitoneal space: Punctate foci of free peritoneal air. Bones/joints: No acute fracture. No dislocation. Soft tissues: Small amount of subcutaneous air along the left lower abdomen, flank and groin. Vasculature: Normal vasculature. Lymph nodes: No lymphadenopathy. IMPRESSION: Postsurgical changes of recent appendectomy including fat stranding and trace fluid in the right lowe r quadrant, foci of free peritoneal air and small amount of subcutaneous air. No evidence of an absce ss. Thank you for allowing us to participate in the care of your patient. Dictated and Authenticated by: Venita Parnell MD 05/27/2018 6:23 AM Central Time ([place]) FINAL REPORT EMERGENT AFTER HOURS CT ABDOMEN AND PELVIS: IMPRESSION: Agree with the preliminary interpretation given by [facility]. POS: [facility]
[2018-05-27] MEDS ORDERED: Iopamidol 370 76% 100 ML VIAL ONE (14:04)
[2018-05-28] MEDS: Piperacillin/Tazobactam 3.375 GM in Sodium Chloride 0.9% 100 ML IVPB SCH (06:50)
[2018-05-28] MEDS: D5 1/2 NS w/20 mEq KCL 1,000 ML IV SCH (08:02)
[2018-05-28] MEDS ORDERED: Hydrochlorothiazide 25 MG TAB PO SCH (09:00)
[2018-05-28] MEDS ORDERED: Amlodipine 10 MG TAB PO SCH (09:00)
[2018-05-28 11:18] LABS: Anion Gap 10 mmol/L (10-20); BUN (Urea Nitrogen) 6 mg/dL (8.4-25.7); Calc. Creatinine Clearance 136 mL/min (70-130); Calcium 8.2 mg/dL (7.8-10.44); Carbon Dioxide 27 mmol/L (23-31); Chloride 106 mmol/L (98-107); Estimated GFR-MDRD Greater than 90; Glucose 116 mg/dL (80-115); Sodium 140 mmol/L (136-145)
[2018-05-28 11:24] LABS: Potassium 2.9 mmol/L (3.5-5.1)
[2018-05-28 11:29] LABS: #Eosinphils 0.2 thou/uL (0.0-0.7); #Lymphocytes 0.4 thou/uL (1.20-3.40); #Monocytes 0.4 thou/uL (0.11-0.59); #Neutrophils 2.8 thou/uL (1.40-6.50); %Basophils 0.2 % (0.0-1.0); %Eosinophils 4.2 % (0.0-10.0); %Lymphocytes 11.6 % (21.0-51.0); %Monocytes 9.4 % (0.0-10.0); %Neutrophils 74.6 % (42.0-75.0); Band 3 % (5-11); Eosinophils 3 % (0-10); Hemoglobin 13.6 g/dL (14.0-18.0); Lymphocytes 6 % (21-51); MDiff Complete? YES; Mean Corpuscular HGB CONC 35.9 g/dL (32.0-36.0); Mean Corpuscular Hemoglobin 31.3 pg (27.0-31.0); Mean Corpuscular Volume 87.2 fL (78.0-98.0); Mean Platelet Volume 10.6 fL (7.4-10.4); Monocytes 4 % (0-10); Neutrophil 84 % (42-75); Platelet Morphology Comment PLT clumps seen-ADEQ; RBC Distribution Width 11.9 % (11.5-14.5); Red Blood Cell (RBC) Count 4.34 mill/uL (4.70-6.10); White Blood Cell (WBC) Count 3.8 thou/uL (4.8-10.8)
--- NOTE | 2018-05-28 11:48 | DIS ---
DATE OF ADMISSION: 05/27/2018 DATE OF DISCHARGE: 05/28/2018 ADMISSION DIAGNOSIS: Postoperative fever. DISCHARGE DIAGNOSIS: Postoperative fever, uncertain etiology. ADMISSION HISTORY: The patient is a 63-year-old white male, who underwent a laparoscopic appendectomy for a gangrenous but nonperforated appendix on May 24. He was discharged home the following day and given oral antibiotics to take at home using Levaquin and Flagyl. He had some degree of fever at home and early in the morning of the 24, two days after he was home, they re-presented to the emergency room secondary to abdominal discomfort and subjective fever and subjective difficulty walking. CT scan was obtained that was unremarkable with typical postoperative findings and no evidence of abscess or perforation. Laboratory studies showed a normal white blood cell count of 5.9 with a little bit of a left shift with 83% neutrophils. Hemoglobin is stable at 13.9. His potassium is low at 2.6. Two days previously, it had been 3.2. Renal function was preserved. Bilirubin was a little bit elevated at 1.8, but this has sort of been chronically elevated between 1.5 to 1.8 over the past year. He was admitted, placed on Zosyn and observed. His vital signs have been normal. His highest temperature has been 98.6, pulse is 70, blood pressure is 143/80. His examination today is unremarkable. His abdomen is soft with normal bowel sounds. Incisions are healing nicely. His followup labs were ordered but have not been resulted at almost 11 o'clock in the morning. I would like to make sure his potassium is appropriately elevated from his baseline before discharge home. I would plan on discharging him home with a new prescription for potassium. I will encourage him to connect with his primary care physician within the next month to get this straightened out. He is taking hydrochlorothiazide chronically. He can resume taking his Levaquin and Flagyl and I discharge him on previously. I will see him back in my office in about 10 to 14 days for routine followup. Job ID: [id number]
[2018-05-28 11:51] VITALS: BP 139/82; TEMP 98.2
[2018-05-28] MEDS ORDERED: Potassium Chloride 20 MEQ TAB PO SCH (12:00)
== END 2018-05-28 13:16 | disposition home or self-care (01) ==
LOC: ERS 05:04 → SURG A 08:13
PROVIDERS: ADMIT Surgery; ATTEND Surgery
DX: R50.82 Postprocedural fever (principal); I10 Essential (primary) hypertension; Z79.899 Other long term (current) drug therapy; Z90.49 Acquired absence of other specified parts of digestive tract; Z98.890 Other specified postprocedural states
CPT/HCPCS: 36415; 71045; 74177; 80048; 80053; 81003; 81015; 83605; 83735; 84484; 85025; 87040; 87086; 96361; 96365; 96366; 96367; 96375; 96376; G0378; J1885; J2405; J2543; J3010; J3480; J7050; Q9967